=== PATIENT | female | born 1970 | race Caucasian/White ===

== ENCOUNTER 2022-03-25 13:51 | Outpatient (RCR) | payer OTHER ==
[~2022-03-25 13:51] MED LIST: ACETAMINOPHEN 1000 MG/100 ML 100 ML IV ONE; BUPIVACAINE 0.25% 30ML SDV ONE; DEXAMETHASONE SOD PHOS INJ 4 MG/ML SDV ONE; KETOROLAC TROMETHAMINE 30 MG/ML VIAL ONE; MELOXICAM7.5 MG PO; METHOCARBAMOL 100MG/1ML 10ML VIAL ONE; VITAMIN D
== END 2022-04-07 ==
LOC: PT 13:51
PROVIDERS: ATTEND Orthopaedic Surgery
DX: S83.242A Other tear of medial meniscus, current injury, left knee, initial encounter (principal)
CPT/HCPCS: 97110 ×3; 97161; J0131; J1100; J2800; J1885

== ENCOUNTER → 2022-05-05 | Outpatient (RCR) | payer OTHER ==
[~2022-05-05] MED LIST changes: -ACETAMINOPHEN 1000 MG/100 ML 100 ML IV ONE; -BUPIVACAINE 0.25% 30ML SDV ONE; -DEXAMETHASONE SOD PHOS INJ 4 MG/ML SDV ONE; -KETOROLAC TROMETHAMINE 30 MG/ML VIAL ONE; -METHOCARBAMOL 100MG/1ML 10ML VIAL ONE
== END ==
LOC: PT 04-09 07:35
PROVIDERS: ATTEND Orthopaedic Surgery
DX: S83.242A Other tear of medial meniscus, current injury, left knee, initial encounter (principal)

== ENCOUNTER 2022-05-06 10:20 | Outpatient (RCR) | payer OTHER | END 2022-06-05 | LOC: PT 10:20 | PROVIDERS: ATTEND Orthopaedic Surgery | DX: S83.242A Other tear of medial meniscus, current injury, left knee, initial encounter (principal) ==

== ENCOUNTER 2022-06-11 13:52 | Outpatient (RCR) | payer OTHER | END 2022-07-05 | LOC: PT 13:52 | PROVIDERS: ATTEND Orthopaedic Surgery | DX: S83.242A Other tear of medial meniscus, current injury, left knee, initial encounter (principal) ==

== ENCOUNTER 2023-02-02 00:12 | Inpatient (IN) | payer OTHER ==
[~2023-02-02] VITALS: Ht 162.6 cm; Wt 117.9 kg
[2023-02-02] VITALS (13 sets, daily range): BP systolic 164–177; BP diastolic 77–96; PULSE 74–94; RESP 18–20; TEMP 98–208.9; O2SAT 94–99
[2023-02-02] MEDS ORDERED: KETOROLAC TROMETHAMINE 30 MG/ML VIAL IV STA (00:22)
[2023-02-02 00:51] LABS: BASOPHILS % 0.2 % (0.0-1.0); EOSINOPHILS # (AUTO) 0.1 (0.0-0.4); EOSINOPHILS % 0.6 % (0.0-6.0); HEMATOCRIT 43.8 % (34.2-44.1); HEMOGLOBIN 14.9 g/dL (12.0-16.0); LYMPHOCYTES # (AUTO) 2.3 (1.0-3.2); LYMPHOCYTES % 13.9 % (18.0-39.1); MEAN CORPUSCULAR VOLUME 88.1 fL (81-99); MONOCYTES # (AUTO) 0.9 (0.2-0.8); MONOCYTES % 5.7 % (4.4-11.3); NEUTROPHILS # (AUTO) 12.8 (2.1-6.9); NEUTROPHILS % 78.8 % (38.7-80.0); PLATELET COUNT 320 x10e3/uL (140-360); RED BLOOD COUNT 4.97 x10e6/uL (3.6-5.1); RED CELL DISTRIBUTION WIDTH 12.4 % (11.7-14.4); WHITE BLOOD COUNT 16.24 x10e3/uL (4.8-10.8)
[2023-02-02 01:09] LABS: ALBUMIN 3.7 g/dL (3.5-5.0); ALBUMIN/GLOBULIN RATIO 0.9 (0.8-2.0); ANION GAP 16.5 mmol/L (8-16); BILIRUBIN,TOTAL 0.9 mg/dL (0.2-1.2); CALCIUM 9.3 mg/dL (8.4-10.2); CREATININE, SERUM 0.78 mg/dL (0.57-1.11); POTASSIUM 3.5 mmol/L (3.5-5.1); TOTAL PROTEIN 7.6 g/dL (6.5-8.1)
[2023-02-02 01:15] LABS: TROPONIN I 0.008 ng/mL (0-0.300)
[2023-02-02] MEDS ORDERED: IOPAMIDOL 370 MG/ML 100 ML INFUS..BTL INJ ONE (01:31)
[2023-02-02] MEDS ORDERED: ALBUTEROL/IPRATROPIUM 3 ML NEB NEB STA (02:56)
[2023-02-02] MEDS ORDERED: METHYLPREDNISOLONE SOD SUCC 40 MG/ML VIAL 1ML IV SCH ×2 (03:00→10:00)
[2023-02-02] MEDS: ALBUTEROL/IPRATROPIUM 3 ML NEB NEB SCH ×5 (06:09→22:39)
[2023-02-02 09:19] LABS: TROPONIN I 0.008 ng/mL (0-0.300)
[2023-02-02] MEDS ORDERED: HYDRALAZINE HCL 20 MG/ML VIAL IV PRN (11:00)
[2023-02-02] MEDS ORDERED: ONDANSETRON HCL INJ 2MG/ML 2ML 2 MG/ML VIAL IV PRN (11:00)
[2023-02-02] MEDS ORDERED: FUROSEMIDE INJ 10 MG/ML 4 ML VIAL IV ONE (11:30)
[2023-02-02] MEDS: ACETAMINOPHEN 325 MG TAB PO PRN ×4 (12:57→22:21)
[2023-02-02] MEDS: GUAIFENESIN 600MG/DEXTROMETHORPHAN 30MG TABSR PO PRN (16:59)
[2023-02-02 17:12] LABS: TROPONIN I 0.008 ng/mL (0-0.300)
[2023-02-02] MEDS: BUDESONIDE/FORMOTEROL 160/4.5MCG INHALER INH SCH (19:39)
[2023-02-02] MEDS: LOSARTAN POTASSIUM 100 MG TAB PO SCH (20:10)
[2023-02-03] VITALS (13 sets, daily range): BP systolic 134–163; BP diastolic 70–89; PULSE 76–89; RESP 16–21; TEMP 97.6–98.4; O2SAT 94–98
[2023-02-03] MEDS: ALBUTEROL/IPRATROPIUM 3 ML NEB NEB SCH ×6 (03:35→23:18)
[2023-02-03] MEDS: ACETAMINOPHEN 325 MG TAB PO PRN (03:40)
[2023-02-03] MEDS ORDERED: KETOROLAC TROMETHAMINE 30 MG/ML VIAL IV ONE (03:45)
[2023-02-03 05:55] LABS: BASOPHILS % 0.2 % (0.0-1.0); EOSINOPHILS % 0.1 % (0.0-6.0); HEMATOCRIT 41.3 % (34.2-44.1); HEMOGLOBIN 13.7 g/dL (12.0-16.0); LYMPHOCYTES % 16.2 % (18.0-39.1); MEAN CORPUSCULAR HEMOGLOBIN 29.7 pg (28-32); MEAN CORPUSCULAR HGB CONC 33.2 g/dL (31-35); MEAN CORPUSCULAR VOLUME 89.4 fL (81-99); MONOCYTES # (AUTO) 1.1 (0.2-0.8); MONOCYTES % 6.2 % (4.4-11.3); NEUTROPHILS % 76.6 % (38.7-80.0); PLATELET COUNT 311 x10e3/uL (140-360); RED BLOOD COUNT 4.62 x10e6/uL (3.6-5.1); RED CELL DISTRIBUTION WIDTH 12.8 % (11.7-14.4); WHITE BLOOD COUNT 18.29 x10e3/uL (4.8-10.8)
[2023-02-03 06:45] LABS: ALBUMIN 3.3 g/dL (3.5-5.0); ANION GAP 14.6 mmol/L (8-16); BILIRUBIN,TOTAL 0.5 mg/dL (0.2-1.2); CALCIUM 9.1 mg/dL (8.4-10.2); CREATININE, SERUM 0.83 mg/dL (0.57-1.11); POTASSIUM 3.6 mmol/L (3.5-5.1); TOTAL PROTEIN 6.7 g/dL (6.5-8.1)
[2023-02-03 07:10] LABS: CHOL/HDL RATIO 4.2 (3.0-3.6)
[2023-02-03 07:31] LABS: THYROID STIMULATING HORMONE 0.495 uIU/mL (0.350-4.940)
[2023-02-03] MEDS: BUDESONIDE/FORMOTEROL 160/4.5MCG INHALER INH SCH ×2 (07:41→19:25)
[2023-02-03 07:56] LABS: TROPONIN I 0.011 ng/mL (0-0.300)
[2023-02-03] MEDS ORDERED: PREDNISONE 20 MG TAB PO SCH (09:00)
[2023-02-03] MEDS: MELOXICAM 7.5 MG TAB PO SCH (09:45)
[2023-02-03] MEDS: LOSARTAN POTASSIUM 100 MG TAB PO SCH (09:45)
[2023-02-03] MEDS: GUAIFENESIN 600MG/DEXTROMETHORPHAN 30MG TABSR PO PRN (09:46)
[2023-02-03] MEDS ORDERED: KETOROLAC TROMETHAMINE 30 MG/ML VIAL IM PRN (10:15)
[2023-02-03] MEDS ORDERED: ONDANSETRON HCL 4 MG ORAL DISINTEGRATING TAB PO PRN (11:00)
[2023-02-03] MEDS: GUAIFENESIN/CODEINE 5 ML LIQD PO PRN ×2 (11:46→20:53)
[2023-02-03] MEDS: AZITHROMYCIN 250 MG TAB PO SCH (11:46)
[2023-02-03] MEDS: ATORVASTATIN 10 MG TAB PO SCH (20:53)
[2023-02-03] MEDS: METHYLPREDNISOLONE SOD SUCC 40 MG/ML VIAL 1ML IV SCH (20:53)
[2023-02-04] VITALS (14 sets, daily range): BP systolic 151–173; BP diastolic 66–88; PULSE 73–94; RESP 16–20; TEMP 97.5–98.6; O2SAT 93–98
[2023-02-04] MEDS: ALBUTEROL/IPRATROPIUM 3 ML NEB NEB SCH ×5 (03:14→23:01)
[2023-02-04 05:58] LABS: BASOPHILS % 0.2 % (0.0-1.0); HEMOGLOBIN 13.8 g/dL (12.0-16.0); LYMPHOCYTES # (AUTO) 1.3 (1.0-3.2); LYMPHOCYTES % 8.2 % (18.0-39.1); MEAN CORPUSCULAR HEMOGLOBIN 29.4 pg (28-32); MEAN CORPUSCULAR HGB CONC 32.9 g/dL (31-35); MEAN CORPUSCULAR VOLUME 89.6 fL (81-99); MONOCYTES # (AUTO) 0.4 (0.2-0.8); MONOCYTES % 2.3 % (4.4-11.3); NEUTROPHILS # (AUTO) 13.7 (2.1-6.9); NEUTROPHILS % 87.8 % (38.7-80.0); PLATELET COUNT 347 x10e3/uL (140-360); RED BLOOD COUNT 4.69 x10e6/uL (3.6-5.1); WHITE BLOOD COUNT 15.55 x10e3/uL (4.8-10.8)
[2023-02-04] MEDS: BUDESONIDE/FORMOTEROL 160/4.5MCG INHALER INH SCH ×2 (07:11→19:00)
[2023-02-04] MEDS: GUAIFENESIN/CODEINE 5 ML LIQD PO PRN (07:39)
[2023-02-04] MEDS: LOSARTAN POTASSIUM 25 MG TAB PO SCH (09:20)
[2023-02-04] MEDS: AZITHROMYCIN 250 MG TAB PO SCH (09:21)
[2023-02-04] MEDS: MELOXICAM 7.5 MG TAB PO SCH (09:21)
[2023-02-04] MEDS: METHYLPREDNISOLONE SOD SUCC 40 MG/ML VIAL 1ML IV SCH ×2 (09:21→20:55)
[2023-02-04] MEDS: ATORVASTATIN 10 MG TAB PO SCH (20:54)
[2023-02-04] MEDS: ACETAMINOPHEN 325 MG TAB PO PRN (20:56)
[2023-02-05] VITALS (9 sets, daily range): BP systolic 136–156; BP diastolic 62–85; PULSE 68–95; RESP 16–20; TEMP 97.7–98.4; O2SAT 95–99
[2023-02-05] MEDS: ALBUTEROL/IPRATROPIUM 3 ML NEB NEB SCH ×4 (03:46→14:44)
[2023-02-05 06:10] LABS: BASOPHILS % 0.1 % (0.0-1.0); HEMATOCRIT 41.7 % (34.2-44.1); HEMOGLOBIN 13.7 g/dL (12.0-16.0); LYMPHOCYTES # (AUTO) 1.2 (1.0-3.2); LYMPHOCYTES % 7.2 % (18.0-39.1); MEAN CORPUSCULAR HEMOGLOBIN 29.8 pg (28-32); MEAN CORPUSCULAR HGB CONC 32.9 g/dL (31-35); MEAN CORPUSCULAR VOLUME 90.7 fL (81-99); MONOCYTES # (AUTO) 0.5 (0.2-0.8); MONOCYTES % 2.8 % (4.4-11.3); NEUTROPHILS # (AUTO) 14.3 (2.1-6.9); NEUTROPHILS % 88.1 % (38.7-80.0); PLATELET COUNT 266 x10e3/uL (140-360); RED CELL DISTRIBUTION WIDTH 12.9 % (11.7-14.4); WHITE BLOOD COUNT 16.22 x10e3/uL (4.8-10.8)
[2023-02-05] MEDS: BUDESONIDE/FORMOTEROL 160/4.5MCG INHALER INH SCH (06:45)
[2023-02-05] MEDS: GUAIFENESIN/CODEINE 5 ML LIQD PO PRN (10:02)
[2023-02-05] MEDS: ACETAMINOPHEN 325 MG TAB PO PRN (10:03)
[2023-02-05] MEDS: METHYLPREDNISOLONE SOD SUCC 40 MG/ML VIAL 1ML IV SCH (10:03)
[2023-02-05] MEDS: MELOXICAM 7.5 MG TAB PO SCH (10:04)
[2023-02-05] MEDS: LOSARTAN POTASSIUM 25 MG TAB PO SCH (10:04)
[2023-02-05] MEDS: AZITHROMYCIN 250 MG TAB PO SCH (10:05)
[2023-02-05] MEDS ORDERED: COMPACT COMPRE1 EACH NEB (14:01)
[2023-02-05] MEDS ORDERED: SYMBICORT 16010.2 GM INH (14:01)
[2023-02-05] MEDS ORDERED: MEDROL4 M2 PO (14:05)
[2023-02-05] MEDS ORDERED: IPRAT-ALBUT 0.5-3 ML IH (14:16)
[2023-02-05] MEDS ORDERED: PROAIR DIGIHAL90 MCG IH (14:18)
[2023-02-06] MEDS ORDERED: METHYLPREDNISOLONE SOD SUCC 40 MG/ML VIAL 1ML IV SCH (09:00)
== END 2023-02-05 14:44 | disposition home or self-care (01) | DRG 191 ==
LOC: ER 00:22 → ERHOLD 02:58 → MED/SURG3 11:46 → OBSVTOIN 02-04 07:49
PROVIDERS: ADMIT Internal Medicine; ATTEND Internal Medicine
DX: J44.1 Chronic obstructive pulmonary disease with (acute) exacerbation (principal); S22.32XA Fracture of one rib, left side, initial encounter for closed fracture; Z68.41 Body mass index [BMI] 40.0-44.9, adult; E78.00 Pure hypercholesterolemia, unspecified; F17.200 Nicotine dependence, unspecified, uncomplicated; E66.9 Obesity, unspecified; I10 Essential (primary) hypertension; X58.XXXA Exposure to other specified factors, initial encounter; Y92.9 Unspecified place or not applicable; Z96.652 Presence of left artificial knee joint; D72.829 Elevated white blood cell count, unspecified; Z20.822 Contact with and (suspected) exposure to COVID-19; Z91.148 Patient's other noncompliance with medication regimen for other reason
CPT/HCPCS: 36415; 71045; 71260; 80053; 80061; 82550; 83690; 83880; 84443; 84484; 85025; 85379; 87400; 93005; 93306; 94640; 94760; 94799; 99284; G0378; J1885; J1940; J2920; J7512; Q9967; U0002